=== PATIENT | female | born 1995 | race African-American/Black ===

== ENCOUNTER 2019-01-11 14:57 | Emergency (ER) | payer BC, MEDICAID ==
[~2019-01-11] VITALS: Ht 172.7 cm; Wt 93.0 kg
[2019-01-11] MEDS ORDERED: HYDROCODONE/ACETAMINOPHEN 5/325MG TABLET PO ONE (16:30)
[2019-01-11] MEDS ORDERED: KETOROLAC 60MG/2ML VIAL IM ONE (16:30)
[2019-01-11] MEDS ORDERED: DIAZEPAM 5 MG TABLET PO ONE (16:30)
[2019-01-11 18:12] VITALS: BP 132/84
== END 2019-01-11 18:14 | disposition home or self-care (01) ==
LOC: ER 14:57
DX: S20.319A Abrasion of unspecified front wall of thorax, initial encounter (principal); R07.89 Other chest pain; M54.2 Cervicalgia; V49.9XXA Car occupant (driver) (passenger) injured in unspecified traffic accident, initial encounter; Y93.9 Activity, unspecified; Y92.410 Unspecified street and highway as the place of occurrence of the external cause; Z91.040 Latex allergy status
CPT/HCPCS: 71045; 73000; 81025; 93005; 99283; J1885

== ENCOUNTER 2019-01-24 18:39 | Emergency (ER) | payer BC, MEDICAID ==
[~2019-01-24] VITALS: Ht 172.7 cm; Wt 92.0 kg
[2019-01-24 18:52] VITALS: BP 127/77
== END 2019-01-24 22:05 | disposition left against medical advice (07) ==
LOC: ER 18:39
DX: M54.9 Dorsalgia, unspecified (principal); Z53.21 Procedure and treatment not carried out due to patient leaving prior to being seen by health care provider

== ENCOUNTER 2019-05-01 10:12 | Emergency (ER) | payer BC, MEDICAID ==
[~2019-05-01] VITALS: Ht 172.7 cm; Wt 90.0 kg
[2019-05-01 10:43] VITALS: BP 152/92
[2019-05-01] MEDS ORDERED: ACETAMINOPHEN 325MG TABLET PO ONE (13:00)
== END 2019-05-01 13:40 | disposition home or self-care (01) ==
LOC: ER 10:12
DX: J06.9 Acute upper respiratory infection, unspecified (principal); R50.9 Fever, unspecified; Z91.040 Latex allergy status
CPT/HCPCS: 87804; 99282

== ENCOUNTER 2023-02-15 18:13 | Emergency (ER) | payer BC, MEDICAID, OTHER ==
[~2023-02-15] VITALS: Ht 165.1 cm; Wt 98.0 kg
[2023-02-15 18:47] VITALS: BP 129/75; O2SAT 100
[2023-02-15] MEDS ORDERED: IBUPROFEN 600MG TABLET PO ONE (19:45)
[2023-02-15] MEDS ORDERED: IBUP-2029 MT (20:45)
[2023-02-15] MEDS ORDERED: ACET-2708 MT (20:51)
[2023-02-15] MEDS ORDERED: ACETAMINOPHEN 500MG TABLET PO ONE (21:00)
[2023-02-15 21:10] VITALS: PULSE 90; RESP 20; TEMP 98
== END 2023-02-15 21:13 | disposition home or self-care (01) ==
LOC: ER 18:13
DX: M25.572 Pain in left ankle and joints of left foot (principal); M79.672 Pain in left foot; F12.10 Cannabis abuse, uncomplicated
CPT/HCPCS: 81025; 73610; 73630; 99284; Z7610

== ENCOUNTER 2023-03-22 12:29 | Emergency (ER) | payer OTHER ==
[~2023-03-22] VITALS: Ht 170.2 cm; Wt 77.0 kg
[~2023-03-22 12:29] MED LIST: ACET-2708 MT
[2023-03-22 12:35] VITALS: O2SAT 98
[2023-03-22] MEDS ORDERED: DEXAMETHASONE 4MG/ML 1ML VIAL IM ONE (13:00)
[2023-03-22] MEDS ORDERED: KETOROLAC 30MG/ML VIAL IM ONE (13:00)
[2023-03-22] MEDS ORDERED: AMOXICILLIN 500 MG CAPSULE PO ONE (13:00)
[2023-03-22] MEDS ORDERED: IBUP-2029 MT (14:50)
[2023-03-22] MEDS ORDERED: AMOX-494 MT (14:50)
[2023-03-22] MEDS ORDERED: ACETAMINOPHEN 325MG TABLET PO ONE (15:00)
[2023-03-22] MEDS ORDERED: ACETAMINOPHEN 325MG TABLET PO NR (15:01)
[2023-03-22] MEDS ORDERED: KETOROLAC 30MG/ML VIAL IM NR (15:01)
[2023-03-22] MEDS ORDERED: DEXAMETHASONE 4MG/ML 1ML VIAL IM NR (15:02)
[2023-03-22 16:54] VITALS: BP 129/85; PULSE 84; RESP 20; TEMP 98.7
== END 2023-03-22 16:56 | disposition home or self-care (01) ==
LOC: ER 12:29
DX: J02.9 Acute pharyngitis, unspecified (principal); F12.10 Cannabis abuse, uncomplicated; Z91.040 Latex allergy status
CPT/HCPCS: 99284; 81025; 87430; 87070; 96372; J1100; J1885